=== PATIENT | male | born 1990 | race Caucasian/White ===

== ENCOUNTER 2017-12-01 17:40 | Emergency (ER) | payer BC ==
[~2017-12-01] VITALS: Ht 188 cm; Wt 90.7 kg
== END 2017-12-01 21:50 | disposition home or self-care (01) ==
LOC: ER 17:40
DX: S61.226A Laceration with foreign body of right little finger without damage to nail, initial encounter (principal); S61.021A Laceration with foreign body of right thumb without damage to nail, initial encounter; S61.224A Laceration with foreign body of right ring finger without damage to nail, initial encounter; W45.8XXA Other foreign body or object entering through skin, initial encounter; Y93.89 Activity, other specified; Y92.89 Other specified places as the place of occurrence of the external cause; Y99.8 Other external cause status